=== PATIENT | male | born 1980 | race Asian ===

== ENCOUNTER 2016-09-08 13:53 | Emergency (ER) | payer MEDICAID ==
--- NOTE | ~2016-09-08 | CT101 ---
[facility] A Service of [facility] RADIOLOGY TEXT RESULTS PATIENT: CRISTHIAN MORROW LOCATION: [facility] : [birth year] UNIT #: [id number] AGE: [address]: Santo Mojica MD SEX: M ORDER DR: [id number] [facility] [address] [place], [place] [address] [id number] E MR#: [id number] Acc #: [id number] NAME: CRISTHIAN MORROW : 1980 SEX: M STUDY DATE/TIME: 09/08/2016 16:47 UNIT: KARY ROOM: STUDY DESCRIPTION: CT Maxillofacial Area Wo Cont Attending Physician: Santo Mojica M.D. Ordering Physician: Santo Mojica M.D. Primary Care Physician: Primary Care Physician No MEDICAL IMAGING REPORT This report is preliminary unless electronic signature is present EXAM CT facial bones 09/08/2016 HISTORY 36-year-old male in the ED after head and facial injury. He reportedly fell 2 days ago, striking the right side of his head and face. He complains of pain, bruising and soft tissue swelling in the right forehead and orbit region. TECHNIQUE Thin-section axial CT images were obtained through the orbits, maxillofacial skull and mandible. Multiplanar images were reconstructed. This CT examination was performed with one or more of the following radiation dose reduction techniques: automatic exposure control, adjustment of mA and/or kV according to patient size, and iterative reconstruction. FINDINGS No acute facial fracture is demonstrated. Fairly extensive subcutaneous hematoma is seen over the right frontal skull and right orbit. No fluid or air is present within the orbits. No evidence of orbital fracture. Mild mucosal thickening in the maxillary sinuses. Dictated by... Jhon Jimenez M.D. THIS IS AN ELECTRONICALLY VERIFIED REPORT Jhon Jimenez M.D. at 09/10/2016 8:50 AM JOCELYNE/any TD: 09/09/2016 10:19 JOB #: [id number] [facility] A Service of [facility] RADIOLOGY TEXT RESULTS PATIENT: CRISTHIAN MORROW LOCATION: [facility] #: [id number] : [birth year] UNIT #: [id number] AGE: [address]: Santo Mojica MD SEX: M ORDER DR: MEDICAL IMAGING REPORT Page 1 of 1 COPY
--- NOTE | ~2016-09-08 | CT71 ---
[facility] A Service of [facility] RADIOLOGY TEXT RESULTS PATIENT: CRISTHIAN MORROW LOCATION: [facility] : 78 UNIT #: [id number] AGE: [address]: Santo Mojica MD SEX: M ORDER DR: [id number] [place] [id number] [facility] [address] [address]. [place], [place] [address] [id number] E MR#: [id number] Acc #: [id number] NAME: CRISTHIAN MORROW : 1980 SEX: M STUDY DATE/TIME: 09/08/2016 16:44 UNIT: KARY ROOM: STUDY DESCRIPTION: CT Head Wo Contrast Attending Physician: Santo Mojica M.D. Ordering Physician: Santo Mojica M.D. Primary Care Physician: No Primary Care Physician MEDICAL IMAGING REPORT This report is preliminary unless electronic signature is present EXAM CT head, noncontrast, 09/08/2016. HISTORY 36-year-old male in the ED after a head injury. He fell on 09/06/2016, striking the right side of his head and face. Complains of pain, soft tissue swelling, bruising and abrasions. TECHNIQUE CT examination of the head without IV contrast. This CT exam was performed with one or more of the following radiation dose reduction techniques: automatic exposure control, adjustment of mA and/or kV according to patient size, and iterative reconstruction. FINDINGS Scalp hematoma extends over the right frontal skull, right supraorbital region, and right orbit. No visible skull fracture. Intracranially, the examination is negative. No evidence of intracranial hemorrhage, cerebral edema, mass effect, or additional abnormality. IMPRESSION 1. No acute intracranial abnormality is demonstrated. 2. Extensive scalp hematoma over the right anterior frontal skull and right orbit. No visible skull fracture. Dictated by... Jhon Jimenez M.D. THIS IS AN ELECTRONICALLY VERIFIED REPORT [facility] A Service of [facility] RADIOLOGY TEXT RESULTS PATIENT: CRISTHIAN MORROW LOCATION: [facility] : 78 UNIT #: [id number] AGE: [address]: Santo Mojica MD SEX: M ORDER DR: Jhon Jimenez M.D. at 09/10/2016 8:50 AM NEDAW/judy TD: 09/09/2016 10:18 JOB #: [id number] MEDICAL IMAGING REPORT Page 1 of 1 COPY
== END 2016-09-08 18:15 | disposition home or self-care (01) ==
LOC: CED 13:53
DX: S00.83XA Contusion of other part of head, initial encounter (principal); W19.XXXA Unspecified fall, initial encounter; Y92.009 Unspecified place in unspecified non-institutional (private) residence as the place of occurrence of the external cause
CPT/HCPCS: 70450; 70486; 99283